=== PATIENT | female | born 1975 | race Hispanic/Latino ===

== ENCOUNTER 2021-11-08 10:42 | Outpatient (CLI) | payer BC | END 2021-11-08 10:43 | disposition home or self-care (01) | LOC: CSHRAD 10:42 | PROVIDERS: ATTEND Family Medicine | DX: M79.604 Pain in right leg (principal) ==

== ENCOUNTER 2024-03-06 10:05 | Outpatient (CLI) | payer BC ==
[2024-03-06] MEDS ORDERED: Iopamidol 370 76% 100 ML VIAL ONE (13:04)
== END 2024-03-06 10:06 | disposition home or self-care (01) ==
LOC: CSHCT 10:05
PROVIDERS: ATTEND Urology
DX: R31.29 Other microscopic hematuria (principal); N20.0 Calculus of kidney; Q63.8 Other specified congenital malformations of kidney
CPT/HCPCS: 74178; Q9967